=== PATIENT | male | born 1955 | race Caucasian/White ===

== ENCOUNTER 2019-03-20 15:01 | Emergency (ER) | payer OTHER ==
[~2019-03-20] VITALS: Ht 188 cm; Wt 68.0 kg
[2019-03-20 15:02] VITALS: Ht 188 cm; Wt 68.0 kg
[2019-03-20 15:31] LABS: BASOPHIL % 0.1 % (0-2); PLATELET COUNT 342 x10^3mcL (130-400)
[2019-03-20 15:58] LABS: CARBON DIOXIDE 29.5 mmol/L (21-32); CREATININE SERUM 1.3 mg/dL (0.7-1.3); POTASSIUM SERUM 4.3 mmol/L (3.5-5.1)
[2019-03-20 16:03] LABS: ALBUMIN 3.5 g/dL (3.4-5.0); BILIRUBIN TOTAL 0.8 mg/dL (0.20-1.00); TOTAL PROTEIN, SERUM 7.2 g/dL (6.4-8.2)
[2019-03-20 19:15] VITALS: BP 154/59
== END 2019-03-20 19:15 | disposition short-term general hospital (02) ==
LOC: ED 15:01
PROVIDERS: Emergency Medicine
DX: I77.74 Dissection of vertebral artery (principal); R53.1 Weakness; Z98.890 Other specified postprocedural states
CPT/HCPCS: 36415; Q9967